=== PATIENT | female | born 1940 | race Caucasian/White ===

== ENCOUNTER → 2021-06-10 | Outpatient (CLI) | payer MEDICARE, OTHER ==
[~2021-06-10] MED LIST: HYDR-757 PO
--- NOTE | 2021-06-10 10:49 | Diagnostic Imaging Report ---
PROCEDURE: US Renal/Bladder. TECHNIQUE: Multiple real-time grayscale images were obtained over the kidneys in various projections bilaterally. Additional Doppler ultrasound was performed of the renal arteries. INDICATION: Hypertension. COMPARISON: None. FINDINGS: Right: The right kidney measures 9.7 cm in length. Renal cortical thickness and echogenicity are within normal limits. A cyst is seen in the right kidney in the inferior pole measuring 1.8 x 1.8 x 1.9 cm. There is no evidence of calculi, solid focal mass or hydronephrosis. No perinephric fluid collections are identified. The peak systolic velocity within the right renal artery measures 166 cm/s. The right renal artery to aorta ratio is 1.3. The resistive indices within the arcuate arteries in the right kidney measures 0.9. Left: The left kidney measures 8.5 cm in length. Renal cortical thickness and echogenicity are within normal limits. A nonobstructing calculus is seen in the inferior pole of the left kidney measuring 0.6 cm. There is no evidence of solid focal mass or hydronephrosis. No perinephric fluid collections are identified. The peak systolic velocity within the left renal artery measures 86 cm/s with a renal artery to aorta ratio of 0.8. The resistive indices within the arcuate arteries in the left kidney measure 0.7. The peak systolic velocity within the abdominal aorta measures 129 cm/s. There is no abdominal ascites. IMPRESSION: 1. No sonographic evidence of renal artery stenosis. 2. No acute renal abnormalities identified. 3. Nonobstructing calculus in the inferior pole of the left kidney measuring 0.6 cm. Dictated by: Dictated on workstation # [id number]
== END ==
LOC: CARD 08:00
PROVIDERS: ATTEND Internal Medicine Cardiovascular Disease
DX: I11.9 Hypertensive heart disease without heart failure (principal); N20.0 Calculus of kidney; I51.0 Cardiac septal defect, acquired; I35.8 Other nonrheumatic aortic valve disorders
CPT/HCPCS: 76770; 93306; 93975

== ENCOUNTER → 2022-06-12 | Outpatient (CLI) | payer MEDICARE, OTHER ==
[2022-06-12 09:58] VITALS: BP 150/69
--- NOTE | 2022-06-12 12:03 | Cardiology Stress Test Report ---
Stress Test Report Date of Procedure/Referring: Date of Procedure: Jun 12, 2022 PCP Yamini Vaughn MD Admitting Physician Admitting Physician: Attending Physician: Dorothy Thompson Indications: HTN Baseline Heart Rate: 64 Baseline Blood Pressure: Blood Pressure Systolic: 150 Blood Pressure Diastolic: 69 Vital Signs Date Time Temp Pulse Resp B/P (MAP) Pulse Ox O2 Delivery O2 Flow Rate FiO2 06/12/22 09:58 64 150/69 (96) Baseline Vital Signs Vital Signs Date Time Temp Pulse Resp B/P (MAP) Pulse Ox O2 Delivery O2 Flow Rate FiO2 06/12/22 09:58 64 150/69 (96) Baseline EKG: Baseline EKG: NSR Summary: After explaining the procedure and details to the patient, she signed the consent and was brought to the stress nuclear laboratory. Patient exercised on standard Sundeep protocol, EKG, heart rate and blood pressure were monitored continuously, resting and stress doses of radio tracer were injected, imaging was acquired and reviewed in the short axis, horizontal long axis and vertical long axis views Patient was able to exercise for a total of 1.50 minutes on Sundeep protocol, METs 3.2 Maximum heart rate 137 Maximum blood pressure 249/85 Stress EKG, Minimal nondiagnostic changes Recovery EKG, Return to baseline TID: 1.1 SSS: 9 SDS: 5 EF: 63 Conclusion: 1. Poor exercise tolerance for a total of 1 minutes and 50 seconds on standard Sundeep protocol, 3.2 METS achieving 98% of maximum expected heart rate 2. Appropriate heart rate response to exercise with hypertensive response to exercise return to baseline during recovery 3. Occasional PVCs and ventricular trigeminy noted at rest and during recovery. Nondiagnostic EKG changes with exercise return to baseline during recovery 4. Reversible ischemia involving the inferior wall and inferoseptum 5. Normal left ventricular size with normal contractility, ejection fraction 63% Copy Copies To 1: YAMINI VAUGHN MD, BASHAR J MD Jun 12, 2022 12:03
== END ==
LOC: CARD 08:07
PROVIDERS: ATTEND Physician Assistant
DX: I10 Essential (primary) hypertension (principal)
CPT/HCPCS: 78452; 93017; A9502

== ENCOUNTER 2022-06-28 14:00 | Day surgery (SDC) | payer MEDICARE, OTHER ==
[~2022-06-28] VITALS: Ht 165.1 cm; Wt 76.8 kg
[2022-06-28] VITALS (10 sets, daily range): BP systolic 119–195; BP diastolic 61–93
[2022-06-28 12:25] LABS: HEMATOCRIT 40 % (35-52); HEMOGLOBIN 13.2 g/dL (11.5-16.0); MEAN CORPUSCULAR HEMOGLOBIN 31 pg (25-34); MEAN CORPUSCULAR HGB CONC 33 g/dL (32-36); MEAN CORPUSCULAR VOLUME 95 fL (80-99); MEAN PLATELET VOLUME 11.5 fL (9.0-12.2); PLATELET COUNT 305 10^3/uL (130-400); WHITE BLOOD COUNT 11.7 10^3/uL (4.3-11.0)
[2022-06-28 12:26] LABS: BILIRUBIN,URINE NEGATIVE (NEGATIVE); CLARITY,URINE CLEAR; COLOR,URINE YELLOW; GLUCOSE, URINE (UA) NEGATIVE (NEGATIVE); KETONES,URINE NEGATIVE (NEGATIVE); LEUKOCYTE ESTERASE ,URINE 1+ (NEGATIVE); NITRITE,URINE NEGATIVE (NEGATIVE); PROTEIN,URINE 2+ (NEGATIVE)
--- NOTE | 2022-06-28 12:26 | Diagnostic Imaging Report ---
EXAMINATION: Chest, one view. HISTORY: Preoperative evaluation. COMPARISON: None available. FINDINGS: Heart size and pulmonary vasculature are normal. The lungs are clear without consolidation, pleural effusion, or pneumothorax. There is mild atelectasis in the lung bases. The osseous structures are intact. IMPRESSION: 1. No acute radiographic abnormality in the chest. Dictated by: Dictated on workstation # [id number]
[2022-06-28 12:35] LABS: BACTERIA,URINE FEW /HPF
[2022-06-28 12:39] LABS: PROTHROMBIN TIME PATIENT 13.4 SEC (12.2-14.7)
[2022-06-28 12:46] LABS: ALANINE AMINOTRANSFERASE 36 U/L (0-55); ALBUMIN 4.7 GM/DL (3.2-4.5); ALKALINE PHOSPHATASE 46 U/L (40-136); BILIRUBIN,TOTAL 0.5 MG/DL (0.1-1.0); BUN/CREATININE RATIO 16; CARBON DIOXIDE 22 MMOL/L (21-32); CHLORIDE 104 MMOL/L (98-107); CHOLESTEROL 183 MG/DL (< 200); CREATININE SERUM 1.33 MG/DL (0.60-1.30); GFR ESTIMATED 40; GLUCOSE 144 MG/DL (70-105); HDL CHOLESTEROL 45 MG/DL (40-60); POTASSIUM 3.7 MMOL/L (3.6-5.0); SODIUM 140 MMOL/L (135-145); TOTAL PROTEIN 8.2 GM/DL (6.4-8.2); TRIGLYCERIDES 196 MG/DL (<150); VLDL CHOLESTEROL 39 MG/DL (5-40)
[~2022-06-28 14:00] MED LIST changes: +AMLO-335 PO; +ASPIRIN 325 MG (5 GR) TABLET ONE; +BENA40TA84 PO; +CLN.2T PO; +CLOPIDOGREL 300 MG (PLAVIX) TABLET PO ONE; +DOXA1TAB2 PO; +FENO134C21 PO; +HEParin (CATH LAB) 2,000 ML IV ONE; +HEParin 1000 UNIT/ML (10ML VIAL) FOR BOLUS ONE; +LIDOCAINE 1% INJ 30 ML (XYLOCAINE) VIAL ONE; +METO1TAB10 PO; +MIDAZOLAM 5 MG/5 ML (VERSED) VIAL ONE; +NITRO DRIP 25000 MCG/D5W 250 ML IV ONE; +NS IV 1000 ML 1,000 ML IV SCH; +NS IV 1000 ML 1,000 ML ONE; +VERAPAMIL 5 MG/2 ML (CALAN) VIAL IV ONE; +fentaNYL INJ 100 MCG/2 ML AMP ONE
--- NOTE | 2022-06-28 14:12 | Cardiac Cath Report ---
Cardiac Cath Report Physician (s)/Servicen[employer] Administrator Developer (s) Physician ROSEMARIE HUNT MD Pre-Procedure Diagnosis Pre-Procedure Diagnosis: Coronary artery disease Post-Procedure Note Procedure Start Date: Jun 28, 2022 Name of Procedure: Left heart catheterization IFR to the LAD Stenting of the LAD Findings/Procedure Note PROCEDURE NOTE: 81-year-old lady with history of hypertension, has been having chest pain, abnormal stress test, scheduled for cardiac catheterization possible PTCA. After explaining the procedure to the patient, all pros and cons were explained, all questions were answered. The patient signed the consent and then she was placed in the cardiac catheterization laboratory. Groin was prepped in SL fashion local anesthesia was used. Sheath placed in the right radial artery, Rich[place] catheter was advanced to the left ventricular cavity, engaged pressure was measured, pullback LV to aorta was done. I was unable to maneuver the catheter, exchanged to a Vinh right catheter and engage the right coronary artery and angiogram was done then exchanged the catheter and used Vinh left catheter and engaged the left coronary system. Patient has severe stenosis in the proximal LAD. Given a total of 6000 units of heparin EBU 3.5 guide was advanced to the left coronary system, IFR wire was advanced and parked in the distal LAD. Baseline IFR 0.81. Then I proceeded with balloon angioplasty then stent deployment using paxton point Preeti 3 x 23 mm balloon expanded to 3.1 mm under 14 mo. Angiogram showed excellent results. iFR initially was 0.87 then last IFR measurement was 0.89. At the end of the procedure the sheath was removed. Vascular band was used FINDINGS: Hemodynamics LV 109/9, end-diastolic pressure of 9 Aorta 118/50 mean of 67 ANATOMY: Left Main is moderate in size with 40% stenosis distally. Nonobstructive disease Left Anterior Descending moderate in size, calcified with 70% stenosis proximally successful balloon angioplasty and stenting using paxton point stent 3 x 23 with excellent results with 0 residual stenosis. Distally has no obstructive disease Left Circumflex is moderate in size, 30% stenosis at the ostium/proximal otherwise nonobstructive disease Right Coronary Artery is large dominant artery with 50% stenosis at the ostium LV Gram was not done, pressure was measured PERCUTANEOUS INTERVENTION: Pre stenosis 70% Post Stenosis 0% Pre NICOLA flow 2 Post NICOLA flow 3 Dominance right coronary artery CONCLUSION: 1. Severe stenosis in the proximal LAD with IFR 0.81 successful balloon angioplasty and stenting using paxton point stent 3 x 23 mm expanded to 3.1 mm with excellent results 2. Otherwise moderate coronary artery disease nonobstructive disease involving the distal left main, ostial circumflex and ostial right coronary artery 3. Normal left ventricular end-diastolic pressure DISCUSSION AND RECOMMENDATION: Patient was started on aspirin and Plavix, adding Lipitor. Educated in length about compliance with medication monitoring blood pressure closely Anesthesia Type: Conscious Sedation Estimated blood loss (mL): 25 ml Contrast Amount: 109 ml Total Radiation Dose: 1453 mGy Post-Procedure Diagnosis Post-operative diagnosis: Chest pain Coronary artery disease Hypertension Hyperlipidemia. ROSEMARIE HUNT MD Jun 28, 2022 14:12
[2022-06-28] MEDS ORDERED: ATOR10TA66 PO (14:14)
[2022-06-28] MEDS ORDERED: ASPI-1238 PO (14:14)
[2022-06-28] MEDS ORDERED: CLOP75TA28 PO (14:14)
--- NOTE | 2022-06-28 14:15 | Discharge Inst-Post CATH ---
Discharge Inst-CATH/EP Problems Reviewed?: Yes Post Cardiac Cath/EP D/C Inst Follow Up/Plan Appointment with Dr. Rogers's office in 2 to 4 weeks <b>CARDIAC CATH/EP PROCEDURE DISCHARGE INSTRUCTIONS</b> ACTIVITY * Go Home directly and rest. * Limit activity of the leg (or wrist if it was used) for 7 days including aer obics, swimming, jogging, bicycling, etc. * Restrict stair-climbing for 7 days if possible, if not, climb up with your non-cath leg, then bring together on the same step. * Avoid lifting, pushing, pulling or excessive movement of the affected extremi ty for 7 days. * Customary sexual activity may be resumed after 2 days-use caution not to use a position that strains or causes pain to the affected extremity. * No driving for 24 hours. * NO SMOKING. * Avoid straining for bowel movements for 7 days. * Gentle walking on level ground is allowed. * Returning to work will depend on the type of procedure and the results. Your doctor will discuss this with you. CALL YOUR DOCTOR FOR ANY OF THE FOLLOWING: *If bleeding from the puncture site occurs- Apply gentle pressure to site with clean cloth and call your doctor or EMS. * If a knot or lump forms under the skin, increases in size, or causes pain. * If bruising appears to be worsening or moving further down your leg instead of disappearing. * Temperature above 101 F. CARE OF YOUR GROIN INCISION; * Bruising or purple discoloration of the skin near the puncture site is common. * You may shower only, no bathtub bathing for 5 days. Be careful to avoid slipping as your leg may feel stiff. * If a closure device was used on your femoral artery, please see the attached guide regarding care of the device and your leg. * Leave dressing on FOR 24 hours. CARE OF YOUR WRIST INCISION; * Bruising or purple discoloration of the skin near the puncture site is common. * You may shower. * DO NOT submerge wrist. * Leave dressing on FOR 24 hours. ROSEMARIE ROGERS MD Jun 28, 2022 14:15
[2022-06-28] MEDS ORDERED: cloNIDine 0.2 MG (CATAPRES) TAB PO SCH ×2 (15:45→21:00)
[2022-06-28] MEDS ORDERED: lisINopril 40 MG (PRINIVIL) TABLET PO SCH (15:45)
[2022-06-28] MEDS ORDERED: meTOprolol TARTRATE 50 MG (LOPRESSOR) TAB PO SCH (15:45)
[2022-06-28] MEDS ORDERED: ATORVASTATIN PO SCH (21:00)
[2022-06-28] MEDS ORDERED: [UNRECOGNIZED DRUG - OTHER] PO SCH (21:00)
[2022-06-28] MEDS ORDERED: AtorvaSTATin TABLET 10 MG TABLET PO SCH (21:00)
[2022-06-28] MEDS ORDERED: amLODIPine 10 MG (NORVASC) TAB PO SCH (21:00)
[2022-06-28] MEDS ORDERED: AMLODIPINE PO SCH (21:00)
[2022-06-29] MEDS ORDERED: meTOprolol TARTRATE 50 MG (LOPRESSOR) TAB PO SCH (09:00)
[2022-06-29] MEDS ORDERED: HYDROCHLOROTHIAZIDE PO SCH (09:00)
[2022-06-29] MEDS ORDERED: [UNRECOGNIZED DRUG - OTHER] PO SCH (09:00)
[2022-06-29] MEDS ORDERED: lisINopril 40 MG (PRINIVIL) TABLET PO SCH (09:00)
[2022-06-29] MEDS ORDERED: doxAzosin 1 MG (CARDURA) TAB PO SCH (09:00)
[2022-06-29] MEDS ORDERED: CLOPIDOGREL 75 MG (PLAVIX) TABLET PO SCH ×2 (09:00)
[2022-06-29] MEDS ORDERED: ASPIRIN E.C. 81 MG (ECOTRIN) TAB PO SCH ×2 (09:00)
[2022-06-29] MEDS ORDERED: NON-FORMULARY MEDICATION 1 EA EA (Benazepril HCl 40 MG) PO SCH (09:00)
[2022-06-29] MEDS ORDERED: METOPROLOL PO SCH (09:00)
== END 2022-06-28 19:10 | disposition home or self-care (01) ==
LOC: CATH 14:00 → CSD 14:14 → CATH 19:10
PROVIDERS: ATTEND Internal Medicine Cardiovascular Disease
DX: I25.10 Atherosclerotic heart disease of native coronary artery without angina pectoris (principal); I10 Essential (primary) hypertension; E78.2 Mixed hyperlipidemia; I65.23 Occlusion and stenosis of bilateral carotid arteries; Z79.82 Long term (current) use of aspirin; Z87.891 Personal history of nicotine dependence
CPT/HCPCS: 71045; 80053; 80061; 81000; 85027; 85347; 85610; 85730; 87081; 87088; 93005; 93458; 93571; C1725; C1769; C1874; C1887; C1894; C9600; 36415